=== PATIENT | female | born 1955 | race Caucasian/White ===

== ENCOUNTER → 2017-03-15 | Outpatient (REF) | payer BC ==
[~2017-03-15] MED LIST: ALDA25TA2; BYETTA; CIPR500T19; LEVO100T7; LOVA40TA; METFORMIN; NABU750T; PROBENECID; VICO5TAB
[2017-03-15 14:26] LABS: PROGESTERONE < 0.2 NG/ML
[2017-03-15 14:27] LABS: CORTISOL AM 13.8 UG/DL (4.3-22.4); ESTRADIOL < 19.0 PG/ML; FOLLICLE STIMULATING HORMONE 33.3 mIU/mL
[2017-03-15 14:43] LABS: ALKALINE PHOSPHATASE 53 U/L (45-117); ALT/SGPT 37 U/L (12-78); ANION GAP 3 MEQ/L (8-16); AST/SGOT 29 U/L (15-37); BILIRUBIN,TOTAL 1.1 MG/DL (0.2-1.0); BLOOD UREA NITROGEN 14 MG/DL (7-18); CALCIUM LEVEL 9.4 MG/DL (8.8-10.2); CARBON DIOXIDE LEVEL 32 MEQ/L (21-32); CHLORIDE LEVEL 102 MEQ/L (98-107); CREATININE FOR GFR 0.89 MG/DL (0.55-1.02); GLOMERULAR FILTRATION RATE > 60.0 (>45); GLUCOSE, FASTING 229 MG/DL (80-110); POTASSIUM SERUM 4.6 MEQ/L (3.5-5.1); SODIUM LEVEL 137 MEQ/L (136-145)
[2017-03-15 14:44] LABS: ALBUMIN 4.2 GM/DL (3.2-5.2); ALBUMIN/GLOBULIN RATIO 1.35 (1.00-1.93); TOTAL PROTEIN 7.3 GM/DL (6.4-8.2)
[2017-03-15 15:39] LABS: FREE T4 1.24 NG/DL (0.76-1.46)
[2017-03-20 00:07] LABS: ESTRONE SERUM 49 pg/mL (.); SEX HORMONE BINDING GLOBULIN 15.8 nmol/L (17.3-125.0)
== END ==
LOC: M LAB REF 13:16
PROVIDERS: ATTEND Obstetrics & Gynecology
DX: N95.9 Unspecified menopausal and perimenopausal disorder (principal)

== ENCOUNTER → 2019-04-09 | Outpatient (REF) | payer BC ==
[2019-04-09 19:29] LABS: BASO % 0.3 % (0.0-1.0); EOS # 0.3 10^3/uL (0.0-0.50); HEMATOCRIT 49.1 % (36.0-47.0); LYMPH # 3.1 10^3/uL (1.5-4.5); LYMPH % 25.2 % (24.0-44.0); MEAN CORPUSCULAR HEMOGLOBIN 32.1 pg (27.0-33.0); MEAN CORPUSCULAR HGB CONC 34.6 g/dl (32.0-36.5); MEAN CORPUSCULAR VOLUME 92.6 fl (80.0-96.0); MONO % 8.3 % (0.0-5.0); NEUTROPHILS # 7.8 10^3/uL (1.8-7.7); NEUTROPHILS % 63.5 % (36.0-66.0); PLATELET COUNT, AUTOMATED 284 10^3/uL (150-450); WHITE BLOOD COUNT 12.2 10^3/uL (4.0-10.0)
[2019-04-09 19:45] LABS: ALBUMIN 4.8 GM/DL (3.2-5.2); BILIRUBIN,TOTAL 1.6 MG/DL (0.2-1.0); CALCIUM LEVEL 10.6 MG/DL (8.8-10.2); CREATININE FOR GFR 1.09 MG/DL (0.55-1.30); FREE T4 1.53 NG/DL (0.76-1.46); GLOMERULAR FILTRATION RATE 53.5 (>45); POTASSIUM SERUM 5.3 MEQ/L (3.5-5.1); THYROID STIMULATING HORMONE 1.34 uIU/ML (0.358-3.740); TOTAL PROTEIN 8.7 GM/DL (6.4-8.2)
[2019-04-09 19:49] LABS: HEMOGLOBIN A1c 7.3 %
== END ==
LOC: M SFHCADAM 15:14
PROVIDERS: ATTEND Family Medicine
DX: T81.49XA Infection following a procedure, other surgical site, initial encounter (principal); R63.4 Abnormal weight loss; E03.9 Hypothyroidism, unspecified; E11.9 Type 2 diabetes mellitus without complications; Y83.8 Other surgical procedures as the cause of abnormal reaction of the patient, or of later complication, without mention of misadventure at the time of the procedure

== ENCOUNTER → 2019-06-30 | Outpatient (REF) | payer BC ==
[2019-06-30 19:28] LABS: FREE T4 1.23 NG/DL (0.76-1.46); THYROID STIMULATING HORMONE 2.63 uIU/ML (0.358-3.740)
== END ==
LOC: M SFHCADAM 14:06
PROVIDERS: ATTEND Family Medicine
DX: E03.9 Hypothyroidism, unspecified (principal)

== ENCOUNTER → 2019-07-03 | Outpatient (REF) | payer BC ==
[2019-07-03 14:13] LABS: FOLATE 14.4 NG/ML (>5.4)
== END ==
LOC: M SFHCADAM 09:31
PROVIDERS: ATTEND Family Medicine
DX: R29.818 Other symptoms and signs involving the nervous system (principal)

== ENCOUNTER → 2019-07-03 | Outpatient (CLI) | payer BC ==
--- NOTE | 2019-07-03 12:36 | REP ---
Right hip two views: There are no comparisons. Mineralization and joint space are unremarkable. There is no femoral head deformity. There is no fracture or dislocation. There are no calcifications. Impression: Negative plain film study of the right hip. If symptoms persist or worsen, consider MRI. Electronically Signed by Ford Shaw MD 07/03/2019 12:28 P
== END ==
LOC: M ADAMS 09:33
PROVIDERS: ATTEND Family Medicine
DX: M25.551 Pain in right hip (principal)

== ENCOUNTER → 2019-07-04 | Outpatient (REF) | payer BC | LOC: M SFHCADAM 13:24 | PROVIDERS: ATTEND Family Medicine | DX: E53.8 Deficiency of other specified B group vitamins (principal) ==

== ENCOUNTER 2019-10-20 10:15 | Day surgery (SDC) | payer BC, MEDICARE ==
[~2019-10-20] VITALS: Ht 162.6 cm; Wt 78.0 kg
[~2019-10-20 10:15] MED LIST changes: +ASPI81TA85 PO; +FAMC500T10 PO; +HM V5000 PO; +JARD1TAB3 PO; +MAGN400C PO; +MELO15TA28 PO; +METF10004 PO; +NS 1,000 ML IV ONE; +ROZE8TAB16 PO; +TRAZ1TAB11 PO
[2019-10-20] MEDS ORDERED: propofoL 200 MG/20 ML VIAL As Ordered ONE (10:53)
[2019-10-20] MEDS ORDERED: LIDOCAINE 2% INJ 100 MG/5 ML SDV (FOR ANES.) As Ordered ONE (10:53)
--- NOTE | 2019-10-20 12:26 | ROOR ---
Patient Name: Mirian Peterson Procedure Date: 10/20/2019 11:55 AM Date of : 1955 Age: 64 Room: [place] Gender: Female Note Status: Finalized Procedure: Colonoscopy Indications: Hematochezia Providers: Isaías KIM MD Referring MD: Samir Solitario MD Requesting Provider: Medicines: Monitored Anesthesia Care Complications: No immediate complications. Procedure: Pre-Anesthesia Assessment: - The heart rate, respiratory rate, oxygen saturations, blood pressure, adequacy of pulmonary ventilation, and response to care were monitored throughout the procedure. The Colonoscope was introduced through the anus and advanced to 10 cm into the ileum. The colonoscopy was performed without difficulty. The patient tolerated the procedure well. The quality of the bowel preparation was good. Findings: The perianal exam findings include non-thrombosed external hemorrhoids and hypertrophied anal papilla(e). Two sessile polyps were found in the splenic flexure and hepatic flexure. The polyps were 4 to 5 mm in size. These polyps were removed with a cold snare. Resection and retrieval were complete. The exam was otherwise without abnormality on direct and retroflexion views. Impression: - Non-thrombosed external hemorrhoids and hypertrophied anal papilla(e) found on perianal exam. - Two 4 to 5 mm polyps at the splenic flexure and at the hepatic flexure, removed with a cold snare. Resected and retrieved. - The examination was otherwise normal on direct and retroflexion views. Recommendation: - Telephone endoscopist for pathology results in 2 weeks. - Repeat colonoscopy in 3-5 years (depending on pathology) for surveillance. Isaías Kim MD Isaías KIM MD 10/20/2019 12:25:49 PM Electronically signed by Isaías KIM MD Number of Addenda: 0 Note Initiated On: 10/20/2019 11:55 AM Estimated Blood Loss: Estimated blood loss: none.
[2019-10-20 13:00] VITALS: BP 138/84
== END 2019-10-20 13:15 | disposition home or self-care (01) ==
LOC: M OPP 10:15
PROVIDERS: ATTEND Internal Medicine Gastroenterology
DX: K62.89 Other specified diseases of anus and rectum (principal); D12.3 Benign neoplasm of transverse colon; K64.4 Residual hemorrhoidal skin tags; K92.1 Melena; Z79.82 Long term (current) use of aspirin; Z79.84 Long term (current) use of oral hypoglycemic drugs; Z79.899 Other long term (current) drug therapy; Z91.048 Other nonmedicinal substance allergy status

== ENCOUNTER → 2019-11-20 | Outpatient (CLI) | payer MEDICARE ==
[~2019-11-20] MED LIST changes: +CONRAY-43 43% 50ML VIAL (Q9960) As Ordered ONE; +FAMC500T PO; -FAMC500T10 PO; -NS 1,000 ML IV ONE; +PROHANCE 279.3MG/ML 5ML VIAL (A9576) As Ordered ONE
--- NOTE | 2019-11-20 10:23 | REP ---
Reason For Exam/Comment: Trochanteric bursitis right hip evaluate for labral tear Procedure: Right hip MRI arthrogram The procedure was performed by AISSATOU Soni, under the direct supervision of Dr. Vasquez. The benefits and risks including but not limited to pain, infection, bleeding and anaphylaxis were explained to the patient and informed consent was obtained both verbally and written. Directly prior to the start of the procedure, a formal timeout was completed in the procedure room. Technique: The right femoral neck joint space was localized using fluoroscopic guidance. The skin was prepped and draped in the usual sterile fashion. 5 mL of 1% lidocaine 10 mg/ml was used as a local anesthetic. Using fluoroscopic guidance a 22-gauge spinal needle was inserted and advanced to the right femoral neck joint space. 3 mL of Conray 43 was injected to verify needle placement. 12 mL of a solution containing 20 ml of sterile saline and a 0.15 ml of ProHance was injected into the joint. The needle was removed and the patient was taken MRI for post procedural imaging. The patient tolerated the procedure well and there were no immediate complications. 0.2 minutes of fluoroscopy time was utilized for this procedure. Some fluoroscopic images are performed with last image hold technology. These images require no additional radiation. Reviewed by AISSATOU Delacruz 11/20/2019 08:24 A Electronically Signed by Arsen Vasquez MD 11/20/2019 10:14 A
--- NOTE | 2019-11-20 10:45 | REP ---
MR ARTHROGRAM RIGHT HIP: TECHNIQUE: Coronal T1, STIR through the pelvis, post arthrogram axial T1 fat sat, T2 fat sat, coronal T1 fat sat, T2 fat sat, sagittal T1 fat sat, axial oblique T1 fat sat right hip. Visualized osseous structures demonstrate no significant marrow edema and no occult fracture. There is no evidence of avascular necrosis. There is moderate chondromalacia at both hip joints. There is a subchondral cyst in the anterior right acetabulum approximately 5 mm in diameter. There is diffuse fraying of the anterior right hip labrum. There is a tear of the superior labrum, anterior aspect with a small bi-lobed paralabral cyst about 3 mm, each component about 3 mm in diameter. There is a normal amount of joint fluid. There is mild ill-defined high signal along the greater trochanter of the proximal right femur compatible with mild greater trochanteric tendinobursitis. Other surrounding soft tissue structures are unremarkable. Visualized intrapelvic structures are unremarkable. IMPRESSION: Moderate chondromalacia. There is 5 mm subchondral cyst in the anterior aspect of the right acetabulum. Diffuse fraying of the anterior right hip labrum. There is a tear of the superior labrum at its anterior aspect with a small bilobed paralabral cyst, each component measuring 3 mm in diameter. Mild greater trochanteric tendinobursitis. Electronically Signed by Ford Hardy MD 11/20/2019 01:04 P
== END ==
LOC: M RADPRO 06:23
PROVIDERS: ATTEND Physician Assistant
DX: M94.251 Chondromalacia, right hip (principal); M70.61 Trochanteric bursitis, right hip; M24.151 Other articular cartilage disorders, right hip; Y93.89 Activity, other specified
CPT/HCPCS: 27093; 73723; 77002; A9576; Q9960

== ENCOUNTER → 2019-12-17 | Outpatient (CLI) | payer MEDICARE ==
[~2019-12-17] MED LIST changes: +LIDOCAINE 1% MDV 20ML VIAL As Ordered ONE; -PROHANCE 279.3MG/ML 5ML VIAL (A9576) As Ordered ONE; +TRIAMCINOLONE ACETONIDE SUSP 40 MG/ML VIAL (J3301) As Ordered ONE
--- NOTE | 2019-12-17 16:52 | REP ---
Reason For Exam/Comment: Cartilage disorder of the right hip Procedure: Right hip intra-articular injection The procedure was performed by AISSATOU Soni, under the direct supervision of Dr. Vasquez. The benefits and risks including but not limited to pain, infection, bleeding and anaphylaxis were explained to the patient and informed consent was obtained both verbally and written. Directly prior to the start of the procedure, a formal timeout was completed in the procedure room. The right femoral neck joint space was localized using fluoroscopic guidance. The skin was prepped and draped in the usual sterile fashion. 5 mL of 1% lidocaine 10 mg/ml was used as a local anesthetic. Using fluoroscopic guidance a 22-gauge spinal needle was inserted and advanced to the right femoral neck joint space. 1 mL of Conray 43 was injected to verify needle placement. A 6 mL solution containing a 5 mL 1% lidocaine 10 mg/ml and 1 ml of Kenalog 40 mg/ml was injected into the joint. The needle was removed and hemostasis was achieved. The patient tolerated the procedure well and there were no immediate complications. 0.2 minutes of fluoroscopy time was utilized for this procedure. Some fluoroscopic images are performed with last image hold technology. These images require no additional radiation. Reviewed by AISSATOU Delacruz 12/17/2019 01:08 P Electronically Signed by Arsen Vasquez MD 12/17/2019 04:42 P
== END ==
LOC: M RADPRO 10:42
PROVIDERS: ATTEND Physician Assistant
DX: M24.151 Other articular cartilage disorders, right hip (principal)
CPT/HCPCS: 20610; 77002; J3301; Q9960

== ENCOUNTER → 2020-04-23 | Outpatient (REF) | payer MEDICARE ==
[~2020-04-23] MED LIST changes: -ASPI81TA85 PO; +ASPI81TA86 PO; -CONRAY-43 43% 50ML VIAL (Q9960) As Ordered ONE; -LIDOCAINE 1% MDV 20ML VIAL As Ordered ONE; -TRIAMCINOLONE ACETONIDE SUSP 40 MG/ML VIAL (J3301) As Ordered ONE
[2020-04-23 19:24] LABS: CREATININE FOR GFR 1.13 MG/DL (0.55-1.30); GLOMERULAR FILTRATION RATE 51.1 (>45)
== END ==
LOC: M LABDRWAD 18:49
PROVIDERS: ATTEND Physician Assistant Surgical
DX: Z01.818 Encounter for other preprocedural examination (principal); M54.5 Low back pain; Z79.82 Long term (current) use of aspirin

== ENCOUNTER → 2020-06-10 | Outpatient (CLI) | payer MEDICARE | LOC: M LABSMTC 09:45 | PROVIDERS: ATTEND Physical Medicine & Rehabilitation | DX: Z20.828 Contact with and (suspected) exposure to other viral communicable diseases (principal) | CPT/HCPCS: C9803; U0003 ==

== ENCOUNTER → 2020-07-20 | Outpatient (REF) | payer MEDICARE ==
[2020-07-20 13:45] LABS: HEMATOCRIT 47.2 % (36.0-47.0); HEMOGLOBIN 15.7 g/dl (12.0-15.5); MEAN CORPUSCULAR HEMOGLOBIN 30.7 pg (27.0-33.0); MEAN CORPUSCULAR HGB CONC 33.3 g/dl (32.0-36.5); MEAN CORPUSCULAR VOLUME 92.2 fl (80.0-96.0); PLATELET COUNT, AUTOMATED 306 10^3/uL (150-450); RED BLOOD COUNT 5.12 10^6/uL (4.00-5.40); WHITE BLOOD COUNT 7.5 10^3/uL (4.0-10.0)
[2020-07-20 14:24] LABS: ALBUMIN 4.6 GM/DL (3.2-5.2); ALT/SGPT 32 U/L (12-78); BILIRUBIN,TOTAL 1.4 MG/DL (0.2-1.0); BLOOD UREA NITROGEN 15 MG/DL (7-18); CALCIUM LEVEL 10.2 MG/DL (8.8-10.2); CARBON DIOXIDE LEVEL 27 MEQ/L (21-32); CHLORIDE LEVEL 100 MEQ/L (98-107); CHOLESTEROL LEVEL 146 MG/DL (<200); CHOLESTEROL RISK RATIO 2.703 (<5); CREATININE FOR GFR 0.98 MG/DL (0.55-1.30); FOLATE 16.6 NG/ML (>5.4); FREE T4 1.48 NG/DL (0.76-1.46); GLOMERULAR FILTRATION RATE > 60.0 (>45); GLUCOSE, FASTING 168 MG/DL (70-100); HDL CHOLESTEROL 54 MG/DL (>40); LDL CHOLESTEROL 46 MG/DL (<100); MAGNESIUM LEVEL 2.2 MG/DL (1.8-2.4); NON-HDL-C 92 MG/DL; POTASSIUM SERUM 5.1 MEQ/L (3.5-5.1); SODIUM LEVEL 135 MEQ/L (136-145); TOTAL PROTEIN 8.1 GM/DL (6.4-8.2); TRIGLYCERIDES LEVEL 228 MG/DL (<150); VITAMIN B12 LEVEL > 2000 PG/ML (247-911)
[2020-07-20 14:31] LABS: CREATININE, URINE 22.3 MG/DL; MALB URINE SIEMENS 17.7 MG/L; MAU/CREAT RATIO 79.3 MCG/MG (0.0-30.0)
[2020-07-20 15:04] LABS: HEMOGLOBIN A1c 7.1 %
== END ==
LOC: M SFHCADAM 09:38
PROVIDERS: ATTEND Family Medicine
DX: E53.8 Deficiency of other specified B group vitamins (principal); E78.2 Mixed hyperlipidemia; E03.9 Hypothyroidism, unspecified; E11.9 Type 2 diabetes mellitus without complications; G47.62 Sleep related leg cramps; R41.3 Other amnesia

== ENCOUNTER → 2021-06-03 | Outpatient (CLI) | payer MEDICARE, OTHER ==
--- NOTE | 2021-06-03 11:41 | REPMRS ---
Patient History The patient states she had a clinical breast exam in May 2021. Patient is nulliparous. Family history of breast cancer at age 58 in sister, breast cancer under age 50 in niece, breast cancer under age 50 in niece, prostate cancer at age 50 or over in brother. Benign excisional biopsy of the right breast, 1998. Patient states no breast complaints today. Patient has signed MRS History Sheet. Digital Woman Screen Mammo: June 03, 2021 - Exam #: [id number] Bilateral CC and MLO view(s) were taken. Technologist: Yoly Cabrera, Technologist Prior study comparison: February 19, 2014, digital woman screen mammo performed at [facility]. February 18, 2013, digital woman screen mammo performed at [facility]. FINDINGS: There are scattered fibroglandular densities. The Volpara volumetric breast density category is:B. There is a possible jackie density in the medial aspect of the left breast seen on only the CC projection. This appears to contain 2 calcifications. This merits further evaluation. There has been no other change in the appearance of the mammogram from the prior studies. There is a mild amount of scattered fibroglandular density which is fairly symmetric. There is no other interval development of dominant mass, architectural distortion, or grouped microcalcification suggestive of malignancy. 3-D tomosynthesis shows no additional findings. Assessment: BI-RADS/ACR category 0 mammogram, Incomplete. Need additonal imaging evaluation and/or prior mammograms for comparison. Recommendation Ultrasound and special view mammogram of the left breast. This patient's [facility] Lifetime Breast Cancer Risk is estimated at 13.9 %. This mammogram was interpreted with the aid of an FDA-approved computer-aided dectection system. Electronically Signed By: Nestor Vasquez MD 06/03/21 1870
== END ==
LOC: M WHC 09:17
PROVIDERS: ATTEND Advanced Practice Midwife
DX: R92.2 Inconclusive mammogram (principal)

== ENCOUNTER → 2021-07-06 | Outpatient (CLI) | payer MEDICARE, OTHER ==
--- NOTE | 2021-07-06 14:33 | REP ---
INDICATION: LEFT BREAST ADD VIEWS. COMPARISON: Multiple TECHNIQUE: Diagnostic digital magnified spot compression view of the left breast in the CC projection FINDINGS: The subtle density seen in the inner aspect of the left breast on the CC view only of 06/03/2021 exam has compressed out to normal appearing breast parenchyma. Benign calcifications are seen on the view. There are no suspicious clusters of calcifications. IMPRESSION: BIRADS/ACR category 2 benign findings. The patient letter being requested is M1. RECOMMENDATION: Repeat screening mammography recommended 1 year (for women over 40). <Electronically signed by Jose Leyva > 07/06/21 [id number]
== END ==
LOC: M WHC 13:45
PROVIDERS: ATTEND Advanced Practice Midwife
DX: R92.2 Inconclusive mammogram (principal); N63.22 Unspecified lump in the left breast, upper inner quadrant
CPT/HCPCS: 77065; G0279

== ENCOUNTER → 2022-06-06 | Outpatient (CLI) | payer MEDICARE | LOC: M WHC 13:43 | PROVIDERS: ATTEND Obstetrics & Gynecology | DX: Z13.820 Encounter for screening for osteoporosis (principal); Z12.31 Encounter for screening mammogram for malignant neoplasm of breast; M85.851 Other specified disorders of bone density and structure, right thigh; M85.852 Other specified disorders of bone density and structure, left thigh ==

== ENCOUNTER 2023-04-17 06:32 | Day surgery (SDC) | payer MEDICARE ==
[~2023-04-17] VITALS: Ht 162.6 cm; Wt 59.7 kg
[~2023-04-17 06:32] MED LIST changes: +ASPI81TA26 PO; +CYAN500T14 PO; +GABA-282 PO; +HYDR200T46 PO; +LOVA40TA PO; +MELA10TA2 PO; +NS 1,000 ML IV ONE; +SPIR100T3 PO; +SYNT112T2 PO; +TRUL0.5I SC
[2023-04-17] MEDS ORDERED: LIDOCAINE 2% 100MG/5ML SDV (FOR ANES.) As Ordered ONE (07:28)
[2023-04-17] MEDS ORDERED: fentaNYL 100 MCG/2 ML INJECTION As Ordered ONE (07:28)
[2023-04-17] MEDS ORDERED: propofoL 500 MG/50 ML VIAL As Ordered ONE (07:28)
[2023-04-17 08:22] VITALS: BP 121/57; O2SAT 95
== END 2023-04-17 08:32 | disposition home or self-care (01) ==
LOC: M OPP 06:32
PROVIDERS: ATTEND Internal Medicine Gastroenterology
DX: Z86.010 Personal history of colon polyps (principal); K57.30 Diverticulosis of large intestine without perforation or abscess without bleeding; K64.8 Other hemorrhoids; K22.4 Dyskinesia of esophagus; R13.10 Dysphagia, unspecified; Z79.02 Long term (current) use of antithrombotics/antiplatelets; Z79.82 Long term (current) use of aspirin; Z79.84 Long term (current) use of oral hypoglycemic drugs; Z79.891 Long term (current) use of opiate analgesic; Z79.899 Other long term (current) drug therapy; Z91.048 Other nonmedicinal substance allergy status
CPT/HCPCS: 43249; G0105; J3010

== ENCOUNTER → 2023-11-09 | Outpatient (REF) | payer MEDICARE ==
[~2023-11-09] MED LIST changes: -NS 1,000 ML IV ONE
== END ==
LOC: M SFHCADAM 16:00
PROVIDERS: ATTEND Family Medicine
DX: E11.9 Type 2 diabetes mellitus without complications (principal)

== ENCOUNTER → 2024-11-11 | Outpatient (REF) | payer MEDICARE ==
[~2024-11-11] MED LIST changes: +GABA-1172 PO; -GABA-282 PO
[2024-11-11 17:47] LABS: APPEARANCE, URINE HAZY (CLEAR); BACTERIA, URINE AUTO NEGATIVE (NEGATIVE); BILIRUBIN, URINE AUTO NEGATIVE (NEGATIVE); BLOOD, URINE BLOOD NEGATIVE (NEGATIVE); COLOR, URINE YELLOW (YELLOW); GLUCOSE, URINE (UA) AUTO 3+ mg/dL (NEGATIVE); KETONE, URINE AUTO NEGATIVE (NEGATIVE); LEUKOCYTE ESTERASE, URINE AUTO TRACE (NEGATIVE); MUCUS, URINE SMALL (NEGATIVE); NITRITE, URINE AUTO NEGATIVE (NEGATIVE); PROTEIN, URINE AUTO NEGATIVE (NEGATIVE); RBC, URINE AUTO 1 /HPF (0-3); SPECIFIC GRAVITY URINE AUTO 1.031 (1.002-1.035); SQUAMOUS EPITHELIAL CELL UR AU 4 /HPF (0-6); UROBILINOGEN, URINE AUTO 0.2 mg/dL (0.0-2.0); WBC, URINE AUTO 8 /HPF (0-3)
== END ==
LOC: M SFHCADAM 14:13
PROVIDERS: ATTEND Family Medicine
DX: Z22.358 Carrier of other Enterobacterales (principal); Z79.899 Other long term (current) drug therapy